=== PATIENT | female | born 1995 | race Caucasian/White ===

== ENCOUNTER → 2017-10-05 | Outpatient (CLI) | payer OTHER ==
[~2017-10-05] MED LIST: BCPILLS PO
[2017-10-05 12:20] LABS: BASO % 0.2 %; BASO ABS # 0.01 K/uL (0-0.2); EOS ABS # 0.16 K/uL (0-0.5); HEMATOCRIT 38.7 % (37-47); HEMOGLOBIN 13.1 g/dL (12.0-16.0); IG# 0.01 K/uL (0.00-0.02); LYMPH ABS # 1.06 K/uL (1.2-3.4); MEAN CELL VOLUME 90.6 fL (80-100); MEAN CORPUSCULAR HEMOGLOBIN 30.7 pg (25-34); MEAN CORPUSCULAR HGB CONC 33.9 g/dl (32-36); MEAN PLATELET VOLUME 9.4 fL (7.4-10.4); MONO % 7.5 %; NEUT % 69.1 %; NEUT ABS # 3.66 K/uL (1.4-6.5); PLATELET COUNT 268 K/uL (130-400); RED CELL DISTRIBUTION WIDTH CV 13.3 % (11.5-14.5); RED CELL DISTRIBUTION WIDTH SD 43.7 fL (36.4-46.3)
[2017-10-05 12:49] LABS: ALBUMIN 3.7 gm/dl (3.4-5.0); ALT/SGPT 40 U/L (12-78); BLOOD UREA NITROGEN 8 mg/dl (7-18); CARBON DIOXIDE 26 mmol/L (21-32); CREATININE 0.88 mg/dl (0.60-1.20); GLUCOSE 95 mg/dl (70-99); POTASSIUM 3.5 mmol/L (3.5-5.1); SODIUM 140 mmol/L (136-145)
[2017-10-05 12:52] LABS: ALKALINE PHOSPHATASE 49 U/L (45-117); AST/SGOT 34 U/L (15-37); TOTAL PROTEIN 6.9 gm/dl (6.4-8.2)
[2017-10-06 15:19] LABS: CLAM CLASS 0; CLAM IGE <0.10 KU/L; CRAB CLASS 0/1; CRAB IGE 0.15 KU/L; LOBSTER CLASS 0/1; LOBSTER IGE 0.16 KU/L; ORANGE IGE <0.10 KU/L; SHRIMP CLASS 0/1; SHRIMP IGE 0.32 KU/L
== END | disposition home or self-care (01) ==
LOC: C.LAB1850 11:34
PROVIDERS: ATTEND Internal Medicine Pulmonary Disease
DX: L50.9 Urticaria, unspecified (principal)